=== PATIENT | female | born 1990 | race Caucasian/White ===

== ENCOUNTER 2021-01-05 16:18 | Emergency (ER) | payer BC, SELFPAY ==
[2021-01-05 17:00] VITALS: BP 109/76; PULSE 78; RESP 20; TEMP 36.8; O2SAT 100; BMI 29.2
--- NOTE | 2021-01-05 17:47 | HMH.EDUTC ---
[facility] – [place] Dis[place] Clinical Impression: Urinary problem Disposition: Home, Self-Care Condition on Discharge: Good Instructions: Phenazopyridine Additional Instructions: Make sure that you are drinking plenty of fluids FOllow up with your Family Doctor for further evaluation and treatment Return if needed Straight to ER if any worsening of symptoms or life threatening symptoms Prescriptions: Phenazopyridine HCl [Pyridium 200mg Tablet] 200 pow PO TID #6 tab Transmission Status: Pending to [facility] Referrals: Zion Vance [Primary Care Provider] - As needed Forms: Work/School Release Time of Disposition: 17:54 Medical Decision Making - Kd Inquiry Pt receiving controlled substance: No Kd was queried for this patient: No Vital Signs: 01/05/21 17:00 Temperature 98.2 F Temperature Source Oral Pulse Rate [Right Brachial] 78 Respiratory Rate 20 Blood Pressure [Right Arm] 109/76 L Blood Pressure Mean [Right Arm] 87 Blood Pressure Source [Right Arm] Automatic Cuff Blood Pressure Position [Right Arm] Sitting 02 Sat by Pulse Oximetry 100 Oxygen Delivery Method Room Air - Lab Data Lab results reviewed: Yes: I reviewed the patient's lab results. Medical Decision Narrative: Discussed transfer to ED to r/o kidney stone and patient declined states that she would follow up with her PCP tomorrow and get a scan to check if no improvement [facility] – [place] HPI - General Stated complaint: Possible UTI Time Seen by Provider: 01/05/21 17:47 Mode of Arrival: Ambulatory Source of Information: Patient Limitations: No Limitations Description of Symptoms (Recalled from Triage Doc. by RN): PATIENT C/O PAIN AND PRESSURE X 3 WEEKS. WAS SEEN AT PCP LAST WEEK AND GIVEN ANTIBIOTICS, BUT STATES SHE IS STILL HAVING SYMPTOMS HEENT Symptoms (Recalled from RN notes): No Resp Symptoms (Recalled from RN notes): No Skin Symptoms (Recalled from RN notes): No MS Symptoms (Recalled from RN notes): No Functional Status (Recalled from RN notes): WNL - History of Present Illness Provider Complaint: Patient states that she has been having pressure like feeling when she has to urinated State that she has been having achy like feeling off on in her lower back area and states that she is urinating ok but at the end she feels like she has pressure burning States that she seen PCP and they put her on antibioitics and she has finished them but today was still having symptoms and she thinks the antibiotics didnt work so she wanted urine checked again - Related Data Previous Rx's Medication Instructions Recorded Phenazopyridine HCl [Pyridium 200 pow PO TID #6 tab 01/05/21 200mg Tablet] Allergies Allergy/AdvReac Type Severity Reaction Status Date / Time Penicillins Allergy Verified 01/05/21 17:48 - Worker's Comp Is this a Worker's Comp case?: No [facility] History - Hepatitis A Screen Drug use history?: No High risk sexual behaviors?: No History of sexually transmitted infection?: No Currently employed?: No Childcare worker?: No Do you have indoor plumbing?: Yes Do you have electricity?: Yes Attestation statement:: This patient has been screened for Hepatitis A risk factors. I have reviewed the patient's past medical history: Yes - Social History Alcohol Intake: never Occupational Status: other ROS Obtained: Yes All systems reviewed & no additional complaints, Yes Systems reviewed as appropriate & no additional complaints - Constitutional Constitutional: Reports system reviewed and no additional complaints, except as docu, Denies body ache, Denies chills, Denies fever(s) - ENT Ears, Nose, Mouth, and Throat: Reports system reviewed and no additional complaints, except as docu - Cardiovascular Cardiovascular: Reports system reviewed and no additional complaints, except as docu - Respiratory Respiratory: Reports system reviewed and no additional complaints, except as docu - Gastrointestinal Gastroint
[2021-01-05 17:57] VITALS: BP 109/76; PULSE 78; RESP 20; TEMP 36.8; O2SAT 100
[2021-01-05 20:54] LABS: Apearance,Urine Clear (Clear); Color,Urine Yellow (Yellow); Glucose,Urine (UA) Negative (Negative); Ketones,Urine 15 (Negative); PH,Urine 5.5 (5.0-8.5); Protein,Urine Negative (Negative); Specific Gravity, Urine 1.005 (1.005-1.030)
[2021-01-05 20:54] LABS: UTC Pregnancy Test, Urine Negative (Negative)
[2021-01-05 20:55] LABS: Bilirubin,Urine Negative (Negative); Blood, Urine Negative (Negative); UTC Leukocyte Esterase,Urine Negative (Negative); UTC Nitrate,Urine Negative (Negative); Urobilinogen,Urine 0.2 EU/dl (0.2)
== END 2021-01-05 18:14 | disposition home or self-care (01) ==
PROVIDERS: Emergency Provider Nurse Practitioner; PCP Family Medicine
DX: R31.9 Hematuria, unspecified (principal); M54.5 Low back pain; Z88.0 Allergy status to penicillin
CPT/HCPCS: 81003; 81025; 99202; G0463